=== PATIENT | female | born 1955 | race Hispanic/Latino ===

== ENCOUNTER → 2025-02-28 | Outpatient (CLI) | payer MEDICARE ==
--- NOTE | 2025-03-04 20:42 | HMCIMG ---
EXAMINATION: SOFT TISSUE ULTRASOUND OF THE NECK. CLINICAL HISTORY: Swelling. COMPARISON: None. TECHNIQUE: Transverse and longitudinal images were obtained in the right side of the neck. FINDINGS: There are lymph nodes that measure 1.1 x 0.2 x 0.5 cm, 0.5 x 0.2 x 0.5 cm, 1.5 x 0.8 x 0.6 cm in craniocaudal, AP, and transverse dimensions in the right side of the neck. Hilar echoes are maintained. No increased vascularity. No collections. The right parotid gland is normal in caliber and measures 2.6 cm. IMPRESSION: Right cervical lymph nodes. /[place]
== END | disposition home or self-care (01) ==
LOC: RAH 11:35
PROVIDERS: ATTEND Family Medicine
DX: R22.1 Localized swelling, mass and lump, neck (principal); R68.84 Jaw pain
CPT/HCPCS: 76536